=== PATIENT | female | born 1985 | race Caucasian/White ===

== ENCOUNTER 2017-10-23 06:54 | Day surgery (SDC) | payer OTHER ==
[~2017-10-23] VITALS: Ht 180.3 cm; Wt 67.1 kg
[~2017-10-23 06:54] MED LIST: NOHOMEMEDS; PENICILLIN V POTASSIUM; PRENATAL1 EACH
[2017-10-23 07:41] VITALS: BP 120/71
[2017-10-23 12:45] VITALS: BP 111/64
[2017-10-23 13:53] VITALS: BP 112/64
== END 2017-10-23 14:00 | disposition home or self-care (01) ==
LOC: SDC 06:54
DX: N94.6 Dysmenorrhea, unspecified (principal); N83.8 Other noninflammatory disorders of ovary, fallopian tube and broad ligament; F17.210 Nicotine dependence, cigarettes, uncomplicated
CPT/HCPCS: 88307; J0131; J0690; J1100; J1170; J1885; J2250; J2550; J2765; J3010